=== PATIENT | male | born 1955 | race Caucasian/White ===

== ENCOUNTER 2019-01-05 05:39 | Day surgery (SDC) | payer OTHER ==
[2019-01-05] MEDS ORDERED: BUPIVACAINE 0.25% (MPF) 30 ML INJ (07:15)
[2019-01-05] MEDS ORDERED: PROPOFOL 20 ML (07:39)
[2019-01-05] MEDS ORDERED: CEFAZOLIN 1 GM INJ (07:39)
[2019-01-05] MEDS ORDERED: MIDAZOLAM 1 MG/ML 2 ML INJ (07:40)
[2019-01-05] MEDS: LIDOCAINE 1% (MPF) 30 ML INJ (07:45)
[2019-01-05] MEDS: BUPIVACAINE 0.5% (SDV) 30 ML INJ (07:45)
[2019-01-05] MEDS: DEXAMETHASONE 4 MG/ML 1 ML INJ (07:45)
[2019-01-05] MEDS ORDERED: KETOROLAC 30 MG INJ (07:46)
[2019-01-05] MEDS ORDERED: ONDANSETRON 4 MG INJ (07:46)
[2019-01-05] MEDS ORDERED: FENTAnyl 50 MCG/ML VIAL (07:46)
[2019-01-05] MEDS ORDERED: METOCLOPRAMIDE 10 MG INJ (07:46)
[2019-01-05] MEDS ORDERED: DEXAMETHASONE 4 MG/ML 5 ML INJ (07:54)
[2019-01-05] MEDS ORDERED: HYDROmorphONE 1 MG/5 ML IV SYRINGE IV ×2 (08:30)
[2019-01-05] MEDS ORDERED: FENTAnyl 50 MCG/ML VIAL IV ×2 (08:30)
[2019-01-05] MEDS ORDERED: ONDANSETRON 4 MG INJ IV (08:30)
[2019-01-05] MEDS: OXYCODONE/ACETAMINOPHEN (5/325) TAB PO (09:49)
== END 2019-01-05 10:00 | disposition home or self-care (01) ==
LOC: SDS 05:39
DX: D21.21 Benign neoplasm of connective and other soft tissue of right lower limb, including hip (principal)
CPT/HCPCS: 28039; 88304